=== PATIENT | male | born 1930 | race Caucasian/White ===

== ENCOUNTER 2016-10-21 14:57 | Inpatient (IN) | payer OTHER ==
[2016-10-21 17:20] LABS: BASOPHIL 0.3 % (0-2.0); EOSINOPHIL 1.1 % (0-4.5); MCH 29.8 pg (25.7-33.7); MCHC 33.6 g/dl (32.0-35.9); MEAN CELL VOLUME 88.5 fl (80-96); MEAN PLT VOLUME 7.1 fl (7.5-11.1); NEUTROPHILS 72.7 % (42.8-82.8); PLATELET COUNT 246 K/MM3 (134-434); RDW 19.1 % (11.9-15.9); WHITE BLOOD COUNT 6.9 K/mm3 (4.0-10.0)
[2016-10-21 18:09] LABS: ALBUMIN 2.6 g/dl (3.4-5.0); ANION GAP 7 (8-16); CALCIUM 7.6 mg/dL (8.5-10.1); CO2 28 mmol/L (21-32); CREATININE 0.7 mg/dL (0.7-1.3); GLUCOSE,RANDOM 94 mg/dL (74-106); SGOT/AST 14 U/L (15-37); SGPT/ALT 30 U/L (12-78)
[2016-10-21 18:14] LABS: ALK PHOS 93 U/L (45-117); BILIRUBIN,TOTAL 0.3 mg/dL (0.2-1.0); TOT PROT 5.1 g/dl (6.4-8.2); TROPONIN I < 0.02 ng/ml (0.00-0.05)
--- NOTE | 2016-10-21 18:42 | PDOC ---
History of Present Illness - General History Source: Patient Exam Limitations: No Limitations - History of Present Illness Initial Comments: 10/21/16 18:49 The patient is a 85 year old male, sent from [facility], with a significant past medical history of MS and COPD, who presents to the emergency department for further evaluation of CHF exacerbation. After a visit to his PCP , Dr. Reno, the patient reports she suggested he report to the ED for evaluation of his leg swelling in his bilateral extremities. The patient denies any pain or paresthesias in his lower extremities. He reports his shortness of breath is part of his baseline. The patient denies any associated chest pain, diaphoresis, or palpitations. The patient denies any fever, chills, cough, headache or dizziness. The patient denies any nausea vomiting, diarrhea, constipation, or changes in urination patterns. Allergies: None reported. Past Surgical History: None reported. Social History: Non-smoker. Denies alcohol or drug use. PCP: Dr. Lizett Reno ([phone]) <Malina Major - Last Filed: 10/21/16 22:08> <Chantale Roberts - Last Filed: 10/22/16 01:55> - General Chief Complaint: Shortness of Breath Stated Complaint: CHF Time Seen by Provider: 10/21/16 16:42 Past History <Malina Major - Last Filed: 10/21/16 22:08> - Past Medical History Cardiac Disorders: Yes (aortic stenosis) COPD: Yes Other medical history: ms, - Psycho/Social/Smoking Cessation Hx Anxiety: No Suicidal Ideation: No Smoking History: Unknown if ever smoked Have you smoked in the past 12 months: No Information on smoking cessation initiated: No Hx Alcohol Use: No Drug/Substance Use Hx: No Substance Use Type: None <Chantale oRberts - Last Filed: 10/22/16 01:55> - Past Medical History Allergies/Adverse Reactions: Allergies Allergy/AdvReac Type Severity Reaction Status Date / Time No Known Allergies Allergy Verified 10/21/16 15:50 Home Medications: Ambulatory Orders Acetaminophen [Mapap] 1,000 mg PO Q6H PRN 10/21/16 Albuterol 2.5/Ipratropium 0.5 [Duoneb -] 1 neb IH Q6H PRN 10/21/16 Albuterol Sulfate [Proair Respiclick] 90 mcg IH QID PRN 10/21/16 Aspirin [ASA -] 81 mg PO DAILY 10/21/16 Atorvastatin Ca [Lipitor] 40 mg PO HS 10/21/16 Budesonide/Formeterol Fumarate [SYMBICORT 160/4.5mcg -] 1 inh PO BID 10/21/16 Cholecalciferol (Vitamin D3) [Vitamin D3] 400 unit PO DAILY 10/21/16 Clopidogrel Bisulfate [Plavix -] 75 mg PO DAILY 10/21/16 Diltiazem HCl [Diltiazem 24Hr Cd] 240 mg PO DAILY 10/21/16 Docusate Sodium 100 mg PO TID 10/21/16 Ferrous Sulfate 325 mg PO DAILY 10/21/16 Guaifenesin [Mucinex] 600 mg PO Q12H 10/21/16 Ibuprofen [Motrin -] 400 mg PO Q8H PRN 10/21/16 Isosorbide Mononitrate [Imdur -] 30 mg PO DAILY 10/21/16 Levothyroxine [Synthroid -] 150 mcg PO DAILY 10/21/16 Magnesium Hydrox 2400MG/30Ml [Milk of Magnesia -] 30 ml PO Q6H PRN 10/21/16 Omeprazole 40 mg PO DAILY 10/21/16 Ropinirole HCl 3 mg PO DAILY 10/21/16 Tiotropium [place] [Spiriva] 1 inh PO DAILY 10/21/16 Venlafaxine HCl ER [Effexor Xr -] 75 mg PO TID 10/21/16 Review of Systems - Review of Systems Able to Perform ROS?: Yes Comments:: 10/21/16 18:49 CONSTITUTIONAL: Absent: fever, no chills, no fatigue EYES: Absent: visual changes ENT: Absent: ear pain, no sore throat CARDIOVASCULAR: Absent: chest pain, no palpitations RESPIRATORY: Present: +shortness of breath Absent: cough GI: Absent: abdominal pain, no nausea, no vomiting, no constipation, no diarrhea GENITOURINARY: Absent: dysuria, no frequency, no hematuria MUSKULOSKELETAL: Present: +Swelling in lower extremities bilaterally Absent: back pain, no arthralgia, no myalgia SKIN: Absent: rash NEURO: Absent: headache <Major,Giomilsy - Last Filed: 10/21/16 22:08> *Physical Exam - Vital Signs Last Vital Signs Temp Pulse Resp BP Pulse Ox 97.1 F L 76 18 102/48 96 10/21/16 14:57 10/21/16 17:22 10/21/16 14:57 10/21/16 14:57 10/21/16 17:22 - Physical Exam Comments: 10/21/16 18:49 GENERAL: Well-appearing, well-nourished. +Labile affect. HEENT: Normocephalic, atraumatic. PERRL, EOM intact. CARDIOVASCULAR: Normal S1, S2. Regular rate and rhythm. PULMONARY: Clear to auscultation bilaterally. No rales or ronchi. ABDOMEN: +Tenderness to palpation in the right and left lower quadrants, with no guarding or rebound. EXTREMITIES: 2+ bilateral pitting edema up to the knee. Normal ROM in all four extremities. SKIN: Warm, dry. No rash NEUROLOGICAL: No focal neurological deficits. <PedritoRomyfermin - Last Filed: 10/21/16 22:08> - Vital Signs Last Vital Signs Temp Pulse Resp BP Pulse Ox 97.1 F L 76 18 102/48 96 10/21/16 14:57 10/21/16 17:22 10/21/16 14:57 10/21/16 14:57 10/21/16 17:22 <Chantale Roberts - Last Filed: 10/22/16 01:55> Heart Score/ECG Review - ECG Impressions Comment:: 10/21/16 18:51 Vent. Rate: 76 bpm EXAM: Sinus rhythm with premature atrial complexes. <PedritoRomyfermin - Last Filed: 10/21/16 22:08> ED Treatment Course - LABORATORY CBC & Chemistry Diagram: 10/21/16 16:56 10/21/16 16:56 - ADDITIONAL ORDERS Additional order review: Laboratory Results 10/21/16 16:56 Sodium 145 Potassium 3.7 Chloride 110 H Carbon Dioxide 28 Anion Gap 7 L BUN 16 Creatinine 0.7 Creat Clearance w eGFR > 60 Random Glucose 94 Calcium 7.6 L Total Bilirubin 0.3 AST 14 L ALT 30 Alkaline Phosphatase 93 Creatine Kinase 27 L Troponin I < 0.02 B-Natriuretic Peptide 171.96 Total Protein 5.1 L Albumin 2.6 L 10/21/16 16:56 RBC 3.81 L MCV 88.5 MCHC 33.6 RDW 19.1 H MPV 7.1 L Neutrophils % 72.7 Lymphocytes % 16.5 Monocytes % 9.4 Eosinophils % 1.1 Basophils % 0.3 - RADIOLOGY Radiograph Interpretation: 10/21/16 18:53 EXAM: CXR INTERPRETED BY: Dr. Kim REVIEWED BY: Dr. Roberts IMPRESSION: Old skeletal trauma. Large heart. Coarse lung changes. Infiltrate or atelectasis with fluid left base. <Malina Major - Last Filed: 10/21/16 22:08> - LABORATORY CBC & Chemistry Diagram: 10/21/16 16:56 10/21/16 16:56 - ADDITIONAL ORDERS Additional order review: Laboratory Results 10/21/16 16:56 Sodium 145 Potassium 3.7 Chloride 110 H Carbon Dioxide 28 Anion Gap 7 L BUN 16 Creatinine 0.7 Creat Clearance w eGFR > 60 Random Glucose 94 Calcium 7.6 L Total Bilirubin 0.3 AST 14 L ALT 30 Alkaline Phosphatase 93 Creatine Kinase 27 L Troponin I < 0.02 B-Natriuretic Peptide 171.96 Total Protein 5.1 L Albumin 2.6 L 10/21/16 16:56 RBC 3.81 L MCV 88.5 MCHC 33.6 RDW 19.1 H MPV 7.1 L Neutrophils % 72.7 Lymphocytes % 16.5 Monocytes % 9.4 Eosinophils % 1.1 Basophils % 0.3 <Chantale Roberts - Last Filed: 10/22/16 01:55> Progress Note - Progress Note Progress Note: First call placed to Dr. Reno at 18:45. Case discussed with Dr. Reno at 18:50. Second call placed to Dr. Reno at 21:18. Awaiting call back. Case discussed with Dr. Reno at 22:08. <Malina Major - Last Filed: 10/21/16 22:08> Medical Decision Making - Medical Decision Making 10/21/16 20:06 85-year-old male sent in by Dr. Dyllan ruth for dyspnea at rest and lower extremity edema. Patient has a past medical history of COPD and multiple sclerosis and that PCP is concerned that he might have "congestive heart failure" -patient denies any complaints and states he feels fine. He said he was sent here just because of his lower extremity edema I spoke w Dr Mijares I reviewed the labs. There was no elevation in the patient's BNP and nondistended his initial lung exam, he had diminished breath sounds. Plan is for the patient to receive prednisone, bronchodilator treatments and Lasix Dr. Mjiares expects to see the patient in the emergency department this evening 10/21/16 22:21 Patient states he feels better after his respiratory treatments and on exam he is moving he has increased breath sounds, greater air movement but no wheezing, crackles, or rails appreciated Currently, Dr. Mijares is at his bedside 10/22/16 01:54 pt required lasix for his LE edema .Admitted for further evaluation /breathing tx <Chantale Roberts - Last Filed: 10/22/16 01:55> *DC/Admit/Observation/Transfer - Attestations Scribe Attestion: 10/21/16 18:50 Documentation prepared by Malina Major, acting as medical transcriber for Chantale Roberts MD. <Malina Major - Last Filed: 10/21/16 22:08> - Discharge Dispostion Admit: Yes <Chantale Roberts - Last Filed: 10/22/16 01:55> Diagnosis at time of Disposition: Edema extremities COPD (chronic obstructive pulmonary disease) Qualifiers: COPD type: COPD with acute exacerbation Qualified Code(s): J44.1 - Chronic obstructive pulmonary disease with (acute) exacerbation - Referrals
[2016-10-21] MEDS ORDERED: predniSONE 20 MG TABLET (UD) PO ONE (18:52)
[2016-10-21] MEDS ORDERED: ALBUTEROL SO4 2.5/IPRATROPIUM 0.5 INH SOL 3 ML VIAL.NEB. NEB ONE ×3 (18:52→19:28)
[2016-10-21] MEDS ORDERED: FUROSEMIDE 40 MG/4 ML INJECTABLE VIAL IVPUSH ONE (18:53)
[2016-10-21] MEDS ORDERED: FUROSEMIDE 40 MG/4 ML INJECTABLE VIAL ONE (19:11)
[2016-10-21] MEDS ORDERED: predniSONE 20 MG TABLET (UD) ONE (19:11)
--- NOTE | 2016-10-22 00:48 | PN ---
Progress Note (short form) - Note Progress Note: The patient is a 85 year old male, with PMH of COPD / Hypothyroid / CAD / MS / HTN / long hx of non compliance, seen at [facility] earlier in the day, with a significant change in respiratory status along with increased edema of LE . Patient was sitting in bed - unable to speak in full sentences. - - He states this has been getting worse over last "day or 2" he denies CP / diaphoresis. he had decreased BS with expiratory wheezing / ?some crackles / no rales. On exam also note significant LE edema. The patient denies any fever , chills, cough, headache or dizziness. The patient denies any nausea vomiting, diarrhea, constipation, or changes in urination patterns. He was referred to ER for further evaluation --COPD +/- CHF, fluid overload?
--- NOTE | 2016-10-22 00:54 | HP ---
Admitting History and Physical - Admission Chief Complaint: dyspnea / Lower extremeties edema History of Present Illness: The patient is a 85 year old male, with PMH of COPD / Hypothyroid / CAD / MS / HTN / long hx of non compliance, seen at [facility] earlier in the day, with a significant change in respiratory status along with increased edema of LE . Patient was sitting in bed - unable to speak in full sentences. - - He states this has been getting worse over last "day or 2" he denies CP / diaphoresis. he had decreased BS with expiratory wheezing / ?some crackles / no rales. On exam also note significant LE edema. The patient denies any fever , chills, cough, headache or dizziness. The patient denies any nausea vomiting, diarrhea, constipation, or changes in urination patterns. He was referred to ER for further evaluation --COPD +/- CHF, fluid overload? History Source: Patient, Medical Record Limitations to Obtaining History: No Limitations - Past Medical History [employer]ATOR: Yes: Multiple Sclerosis, Seizure Cardiovascular: Yes: Aortic Stenosis, CAD, CHF, HTN, Hyperlipdemia Pulmonary: Yes: COPD Gastrointestinal: Yes: Constipation Psych: Yes: Depression - Smoking History Smoking history: Unknown if ever smoked Have you smoked in the past 12 months: No - Alcohol/Substance Use Hx Alcohol Use: No - Social History Usual Living Arrangement: Yes: Assisted Living ADL: Support Services History of Recent Travel: No Home Medications - Allergies Allergies/Adverse Reactions: Allergies Allergy/AdvReac Type Severity Reaction Status Date / Time No Known Allergies Allergy Verified 10/21/16 15:50 - Home Medications Home Medications: Ambulatory Orders Acetaminophen [Mapap] 1,000 mg PO Q6H PRN 10/21/16 Albuterol 2.5/Ipratropium 0.5 [Duoneb -] 1 neb IH Q6H PRN 10/21/16 Albuterol Sulfate [Proair Respiclick] 90 mcg IH QID PRN 10/21/16 Aspirin [ASA -] 81 mg PO DAILY 10/21/16 Atorvastatin Ca [Lipitor] 40 mg PO HS 10/21/16 Budesonide/Formeterol Fumarate [SYMBICORT 160/4.5mcg -] 1 inh PO BID 10/21/16 Cholecalciferol (Vitamin D3) [Vitamin D3] 400 unit PO DAILY 10/21/16 Clopidogrel Bisulfate [Plavix -] 75 mg PO DAILY 10/21/16 Diltiazem HCl [Diltiazem 24Hr Cd] 240 mg PO DAILY 10/21/16 Docusate Sodium 100 mg PO TID 10/21/16 Ferrous Sulfate 325 mg PO DAILY 10/21/16 Guaifenesin [Mucinex] 600 mg PO Q12H 10/21/16 Ibuprofen [Motrin -] 400 mg PO Q8H PRN 10/21/16 Isosorbide Mononitrate [Imdur -] 30 mg PO DAILY 10/21/16 Levothyroxine [Synthroid -] 150 mcg PO DAILY 10/21/16 Magnesium Hydrox 2400MG/30Ml [Milk of Magnesia -] 30 ml PO Q6H PRN 10/21/16 Omeprazole 40 mg PO DAILY 10/21/16 Ropinirole HCl 3 mg PO DAILY 10/21/16 Tiotropium [place] [Spiriva] 1 inh PO DAILY 10/21/16 Venlafaxine HCl ER [Effexor Xr -] 75 mg PO TID 10/21/16 Review of Systems - Review of Systems Constitutional: reports: No Symptoms Eyes: reports: No Symptoms HENT: reports: No Symptoms Neck: reports: No Symptoms Cardiovascular: reports: Shortness of Breath Respiratory: reports: Orthopnea, PND, SOB Breasts: reports: No Symptoms Reported Musculoskeletal: reports: No Symptoms Integumentary: reports: No Symptoms Neurological: reports: Pre-Existing Deficit Endocrine: reports: No Symptoms Hematology/Lymphatic: reports: No Symptoms Physical Examination Vital Signs: Vital Signs Temperature 97.6 F 10/21/16 23:50 Pulse Rate 77 10/21/16 23:50 Respiratory Rate 20 10/21/16 23:50 Blood Pressure 120/63 10/21/16 23:50 O2 Sat by Pulse Oximetry (%) 96 10/21/16 17:22 Constitutional: Yes: Well Nourished, Calm, Mild Distress Eyes: Yes: WNL HENT: Yes: WNL Neck: Yes: WNL, Supple, Trachea Midline, Decreased ROM Cardiovascular: Yes: Regular Rate and Rhythm Respiratory: Yes: Diminished, On Venti-Mask Gastrointestinal: Yes: WNL, Normal Bowel Sounds, Soft Renal/: Yes: WNL, Incontinence Musculoskeletal: Yes: WNL Extremities: Yes: Cool, Other Edema: Yes Peripheral Pulses WNL: Yes Neurological: Yes: WNL ...Motor Strength: LLE Problem List - Problems (1) COPD (chronic obstructive pulmonary disease) Code(s): J44.9 - CHRONIC OBSTRUCTIVE PULMONARY DISEASE, UNSPECIFIED Qualifiers : COPD type: COPD with acute exacerbation Qualified Code(s): J44.1 - Chronic obstructive pulmonary disease with (acute) exacerbation (2) Edema extremities Code(s): R60.0 - LOCALIZED EDEMA (3) Hypothyroid Code(s): E03.9 - HYPOTHYROIDISM, UNSPECIFIED (4) CAD (coronary artery disease) Code(s): I25.10 - ATHSCL HEART DISEASE OF [place] CORONARY ARTERY W/O ANG PCTRS (5) CAD (coronary artery disease), autologous vein bypass graft Code(s): I25.810 - ATHEROSCLEROSIS OF CABG W/O ANGINA PECTORIS
[2016-10-22] MEDS: methylPREDNISolone NA SUCC 40 MG/1 ML VIAL IVPB SCH ×3 (02:03→18:02)
[2016-10-22 04:20] VITALS: BMI 25.4
[2016-10-22] MEDS ORDERED: VENLAFAXINE HCL 75 MG TABLET PO SCH (06:00)
[2016-10-22] MEDS: ALBUTEROL SO4 2.5/IPRATROPIUM 0.5 INH SOL 3 ML VIAL.NEB. NEB SCH ×4 (06:10→23:26)
[2016-10-22] MEDS: LEVOTHYROXINE NA 150 MCG TABLET PO SCH (06:22)
[2016-10-22 07:31] LABS: BASOPHIL 0.2 % (0-2.0); MCH 29.9 pg (25.7-33.7); MCHC 34.1 g/dl (32.0-35.9); MEAN CELL VOLUME 87.8 fl (80-96); MEAN PLT VOLUME 7.3 fl (7.5-11.1); NEUTROPHILS 82.4 % (42.8-82.8); PLATELET COUNT 231 K/MM3 (134-434); RDW 18.8 % (11.9-15.9)
[2016-10-22] MEDS ORDERED: PT OWN MED DRAWER 7, Y5N ONE ×5 (08:37→21:17)
[2016-10-22 09:00] LABS: CALCIUM 7.9 mg/dL (8.5-10.1); CREATININE 0.8 mg/dL (0.7-1.3); THYROID STIMULATING HORMONE 0.59 uIU/ml (0.358-3.74)
[2016-10-22] MEDS: VENLAFAXINE HCL 75 MG TABLET PO SCH ×3 (09:37→18:02)
[2016-10-22] MEDS: ISOSORBIDE MONONITRATE 30 MG TAB.SR.24H (FP) PO SCH (10:53)
[2016-10-22] MEDS: ASPIRIN COATED 81 MG TABLET.EC PO SCH (10:53)
[2016-10-22] MEDS: HEPARIN NA (PORCINE) 5,000 UNITS/ML 1ML VIAL SQ SCH ×2 (10:53→21:48)
[2016-10-22] MEDS: FUROSEMIDE 40 MG/4 ML INJECTABLE VIAL IVPB SCH (10:54)
[2016-10-22] MEDS: PANTOPRAZOLE 40 MG TABLET (FP) PO SCH (10:54)
[2016-10-22] MEDS: BUDESONIDE/FORMETEROL FUMARATE 160/4.5 mcg INHALER IH SCH ×2 (12:40→21:48)
[2016-10-22] MEDS: ATORVASTATIN CA 40 MG TABLET (FP) PO SCH (21:48)
[2016-10-22] MEDS: rOPINIRole HCL 3 MG TABLET PO SCH (21:49)
--- NOTE | 2016-10-22 23:30 | PN ---
Progress Note (short form) - Note Progress Note: in bed awaiting breakfast more comfortable / less dyspneic Vital Signs Period Temp Pulse Resp BP Sys/Pearson Pulse Ox Last 24 Hr 97.6 F-97.8 F 77-94 18-20 104-141/50-79 95-95 neck -jvd heart irreg S1/S2 lungs improved BS bilat no wheezing abd soft non tender ext +2 edema bilat (less)? CBC, BMP 10/22/16 06:00 10/22/16 06:00 Active Medications Albuterol/Ipratropium (Duoneb -) 1 amp NEB QIDR [facility] Last Admin: 10/22/16 17:55 Dose: 1 amp Aspirin (Ecotrin -) 81 mg PO DAILY [facility] Last Admin: 10/22/16 10:53 Dose: 81 mg Atorvastatin Calcium (Lipitor -) 40 mg PO HS [facility] Last Admin: 10/22/16 21:48 Dose: 40 mg Budesonide/Formoterol Fumarate (Symbicort 160/4.5mcg -) 1 puff IH BID [facility] Last Admin: 10/22/16 21:48 Dose: 1 puff Diltiazem HCl (Cardizem Cd -) 240 mg PO DAILY [facility] Last Admin: 10/22/16 10:53 Dose: 240 mg Furosemide (Lasix Injection -) 20 mg IVPB DAILY [facility] Last Admin: 10/22/16 10:54 Dose: 20 mg Heparin Sodium (Porcine) (Heparin -) 5,000 unit SQ BID [facility] Last Admin: 10/22/16 21:48 Dose: 5,000 unit Isosorbide Mononitrate (Imdur -) 30 mg PO DAILY [facility] Last Admin: 10/22/16 10:53 Dose: 30 mg Levothyroxine Sodium (Synthroid -) 150 mcg PO DAILY@0700 [facility] Last Admin: 10/22/16 06:22 Dose: 150 mcg Methylprednisolone Sodium Succinate (Solu-Medrol -) 40 mg IVPB Q8H-IV [facility] Last Admin: 10/22/16 18:02 Dose: 40 mg Pantoprazole Sodium (Protonix -) 40 mg PO DAILY [facility] Last Admin: 10/22/16 10:54 Dose: 40 mg Ropinirole HCl (Requip -) 3 mg PO HS [facility] Last Admin: 10/22/16 21:49 Dose: 3 mg Venlafaxine HCl (Effexor -) 75 mg PO TIDCM [place] Last Admin: 10/22/16 18:02 Dose: 75 mg Laboratory Last Values WBC 6.0 K/mm3 (4.0-10.0) 10/22/16 06:00 RBC 4.02 M/mm3 (4.00-5.60) 10/22/16 06:00 Hgb 12.0 GM/dL (11.7-16.9) 10/22/16 06:00 Hct 35.3 % (35.4-49) L 10/22/16 06:00 MCV 87.8 fl (80-96) 10/22/16 06:00 MCHC 34.1 g/dl (32.0-35.9) 10/22/16 06:00 RDW 18.8 % (11.9-15.9) H 10/22/16 06:00 Plt Count 231 K/MM3 (134-434) 10/22/16 06:00 MPV 7.3 fl (7.5-11.1) L 10/22/16 06:00 Neutrophils % 82.4 % (42.8-82.8) 10/22/16 06:00 Lymphocytes % 16.2 % (8-40) 10/22/16 06:00 Monocytes % 1.2 % (3.8-10.2) L D 10/22/16 06:00 Eosinophils % 0.0 % (0-4.5) D 10/22/16 06:00 Basophils % 0.2 % (0-2.0) 10/22/16 06:00 Sodium 144 mmol/L (136-145) 10/22/16 06:00 Potassium 4.0 mmol/L (3.5-5.1) 10/22/16 06:00 Chloride 107 mmol/L (98-107) 10/22/16 06:00 Carbon Dioxide 25 mmol/L (21-32) 10/22/16 06:00 Anion Gap 12 (8-16) 10/22/16 06:00 BUN 17 mg/dL (7-18) 10/22/16 06:00 Creatinine 0.8 mg/dL (0.7-1.3) 10/22/16 06:00 Creat Clearance w eGFR > 60 (>60) 10/21/16 16:56 Random Glucose 112 mg/dL (74-106) H 10/22/16 06:00 Calcium 7.9 mg/dL (8.5-10.1) L 10/22/16 06:00 Magnesium 2.0 mg/dL (1.8-2.4) 10/22/16 06:00 Total Bilirubin 0.3 mg/dL (0.2-1.0) 10/21/16 16:56 AST 14 U/L (15-37) L 10/21/16 16:56 ALT 30 U/L (12-78) 10/21/16 16:56 Alkaline Phosphatase 93 U/L (45-117) 10/21/16 16:56 Creatine Kinase 27 IU/L (39-308) L 10/21/16 16:56 Troponin I < 0.02 ng/ml (0.00-0.05) 10/21/16 16:56 B-Natriuretic Peptide 171.96 pg/ml (5-450) 10/21/16 16:56 Total Protein 5.1 g/dl (6.4-8.2) L 10/21/16 16:56 Albumin 2.6 g/dl (3.4-5.0) L 10/21/16 16:56 TSH 0.59 uIU/ml (0.358-3.74) 10/22/16 06:00 85 y/o male with hx of PA.fib / CAD / COPD / hypothyroid/ DVT s/p IVC filter / MS / was [facility] in the month and signed out AMA. I follow him at his home [facility] and was asked to see him due to having increasing LE edma along with increased Dyspnea at rest. Patient was examoned and transfered to ER for treatment. Curretly being treated with steroids / IV Lasix / Nebulizer treatment. Today with improved BS and inc comfort. Plan --taper steroids --contiue neb treatment --continue current home meds --follow labs in am Problem List - Problems (1) COPD (chronic obstructive pulmonary disease) Code(s): J44.9 - CHRONIC OBSTRUCTIVE PULMONARY DISEASE, UNSPECIFIED Qualifiers : COPD type: COPD with acute exacerbation Qualified Code(s): J44.1 - Chronic obstructive pulmonary disease with (acute) exacerbation (2) Edema extremities Code(s): R60.0 - LOCALIZED EDEMA (3) Hypothyroid Code(s): E03.9 - HYPOTHYROIDISM, UNSPECIFIED (4) CAD (coronary artery disease) Code(s): I25.10 - ATHSCL HEART DISEASE OF [place] CORONARY ARTERY W/O ANG PCTRS (5) CAD (coronary artery disease), autologous vein bypass graft Code(s): I25.810 - ATHEROSCLEROSIS OF CABG W/O ANGINA PECTORIS
--- NOTE | 2016-10-23 00:33 | EKG ---
Test Reason : Blood Pressure : / mmHG Vent. Rate : 076 BPM Atrial Rate : 076 BPM P-R Int : 160 ms QRS Dur : 108 ms QT Int : 388 ms P-R-T Axes : 015 015 025 degrees QTc Int : 436 ms SINUS RHYTHM WITH PREMATURE ATRIAL COMPLEXES OTHERWISE NORMAL ECG WHEN COMPARED WITH ECG OF 21-OCT-2016 15:24, NO SIGNIFICANT CHANGE WAS FOUND Confirmed by LOCO ALEXANDER MD ([id number]) on 10/23/2016 12:33:08 AM Referred By: Confirmed By:LOCO ALEXANDER MD
[2016-10-23] MEDS: methylPREDNISolone NA SUCC 40 MG/1 ML VIAL IVPB SCH ×3 (02:49→17:03)
[2016-10-23] MEDS: LEVOTHYROXINE NA 150 MCG TABLET PO SCH (06:09)
[2016-10-23 08:02] LABS: BASOPHIL 0.1 % (0-2.0); EOSINOPHIL 0.1 % (0-4.5); MCH 29.9 pg (25.7-33.7); MCHC 33.7 g/dl (32.0-35.9); MEAN CELL VOLUME 88.6 fl (80-96); MEAN PLT VOLUME 7.4 fl (7.5-11.1); PLATELET COUNT 234 K/MM3 (134-434); RDW 19.1 % (11.9-15.9); WHITE BLOOD COUNT 12.6 K/mm3 (4.0-10.0)
[2016-10-23 08:37] LABS: CALCIUM 8.2 mg/dL (8.5-10.1); CREATININE 0.9 mg/dL (0.7-1.3); PHOSPHOROUS 3.3 mg/dL (2.5-4.9)
[2016-10-23] MEDS ORDERED: PT OWN MED DRAWER 7, Y5N ONE (09:19)
[2016-10-23] MEDS: VENLAFAXINE HCL 75 MG TABLET PO SCH ×3 (09:21→16:50)
[2016-10-23] MEDS: PANTOPRAZOLE 40 MG TABLET (FP) PO SCH (09:21)
[2016-10-23] MEDS: ISOSORBIDE MONONITRATE 30 MG TAB.SR.24H (FP) PO SCH (09:22)
[2016-10-23] MEDS: ASPIRIN COATED 81 MG TABLET.EC PO SCH (09:22)
[2016-10-23] MEDS: FUROSEMIDE 40 MG/4 ML INJECTABLE VIAL IVPB SCH (09:22)
[2016-10-23] MEDS: HEPARIN NA (PORCINE) 5,000 UNITS/ML 1ML VIAL SQ SCH ×2 (09:22→21:36)
[2016-10-23] MEDS: BUDESONIDE/FORMETEROL FUMARATE 160/4.5 mcg INHALER IH SCH ×2 (09:23→21:37)
[2016-10-23] MEDS: ALBUTEROL SO4 2.5/IPRATROPIUM 0.5 INH SOL 3 ML VIAL.NEB. NEB SCH ×3 (11:15→23:26)
--- NOTE | 2016-10-23 14:23 | EKG ---
Test Reason : Blood Pressure : / mmHG Vent. Rate : 079 BPM Atrial Rate : 079 BPM P-R Int : 166 ms QRS Dur : 098 ms QT Int : 386 ms P-R-T Axes : 075 038 047 degrees QTc Int : 442 ms POOR DATA QUALITY, INTERPRETATION MAY BE ADVERSELY AFFECTED SINUS RHYTHM WITH PREMATURE SUPRAVENTRICULAR COMPLEXES OTHERWISE NORMAL ECG NO PREVIOUS ECGS AVAILABLE Confirmed by LOCO ALEXANDER MD ([id number]) on 10/23/2016 2:22:55 PM Referred By: Confirmed By:LOCO ALEXANDER MD
[2016-10-23] MEDS: ATORVASTATIN CA 40 MG TABLET (FP) PO SCH (21:35)
[2016-10-23] MEDS: rOPINIRole HCL 3 MG TABLET PO SCH (21:36)
[2016-10-24] MEDS: methylPREDNISolone NA SUCC 40 MG/1 ML VIAL IVPB SCH ×2 (01:26→10:32)
[2016-10-24] MEDS: ALBUTEROL SO4 2.5/IPRATROPIUM 0.5 INH SOL 3 ML VIAL.NEB. NEB SCH ×2 (06:05→11:18)
[2016-10-24] MEDS: LEVOTHYROXINE NA 150 MCG TABLET PO SCH (06:08)
[2016-10-24] MEDS ORDERED: PT OWN MED DRAWER 7, Y5N ONE ×3 (07:49→11:57)
[2016-10-24] MEDS: VENLAFAXINE HCL 75 MG TABLET PO SCH ×2 (07:50→11:58)
--- NOTE | 2016-10-24 09:46 | PN ---
Progress Note (short form) - Note Progress Note: having breakfast comfortable - wants to go home less dyspneic Vital Signs Period Temp Pulse Resp BP Sys/Pearson Pulse Ox Last 24 Hr 97.3 F-97.8 F 71-91 18-20 105-133/45-74 97-98 CBC, BMP 10/23/16 07:25 10/23/16 07:25 neck supple no JVD heart irregular S1/S2 lungs clear bilat abd soft non tender ext less edema Active Medications Albuterol/Ipratropium (Duoneb -) 1 amp NEB QIDR [facility] Last Admin: 10/24/16 06:05 Dose: 1 amp Aspirin (Ecotrin -) 81 mg PO DAILY [facility] Last Admin: 10/23/16 09:22 Dose: 81 mg Atorvastatin Calcium (Lipitor -) 40 mg PO HS [facility] Last Admin: 10/23/16 21:35 Dose: 40 mg Budesonide/Formoterol Fumarate (Symbicort 160/4.5mcg -) 1 puff IH BID [facility] Last Admin: 10/23/16 21:37 Dose: 1 puff Diltiazem HCl (Cardizem Cd -) 240 mg PO DAILY [facility] Last Admin: 10/23/16 09:22 Dose: 240 mg Furosemide (Lasix Injection -) 20 mg IVPB DAILY [facility] Last Admin: 10/23/16 09:22 Dose: 20 mg Heparin Sodium (Porcine) (Heparin -) 5,000 unit SQ BID [facility] Last Admin: 10/23/16 21:36 Dose: 5,000 unit Isosorbide Mononitrate (Imdur -) 30 mg PO DAILY [facility] Last Admin: 10/23/16 09:22 Dose: 30 mg Levothyroxine Sodium (Synthroid -) 150 mcg PO DAILY@0700 [facility] Last Admin: 10/24/16 06:08 Dose: 150 mcg Methylprednisolone Sodium Succinate (Solu-Medrol -) 40 mg IVPB Q8H-IV [facility] Last Admin: 10/24/16 01:26 Dose: 40 mg Pantoprazole Sodium (Protonix -) 40 mg PO DAILY [facility] Last Admin: 10/23/16 09:21 Dose: 40 mg Ropinirole HCl (Requip -) 3 mg PO HS [facility] Last Admin: 10/23/16 21:36 Dose: 3 mg Venlafaxine HCl (Effexor -) 75 mg PO TIDCM [facility] Last Admin: 10/24/16 07:50 Dose: 75 mg Problem List - Problems (1) COPD (chronic obstructive pulmonary disease) Assessment/Plan: improvement taper steroids cont nebulizer PPI Code(s): J44.9 - CHRONIC OBSTRUCTIVE PULMONARY DISEASE, UNSPECIFIED Qualifiers : COPD type: COPD with acute exacerbation Qualified Code(s): J44.1 - Chronic obstructive pulmonary disease with (acute) exacerbation (2) Edema extremities Assessment/Plan: less edema muscle wasting @ MS non ambulatory Code(s): R60.0 - LOCALIZED EDEMA (3) Hypothyroid Assessment/Plan: continue current dose of synthroid Code(s): E03.9 - HYPOTHYROIDISM, UNSPECIFIED (4) CAD (coronary artery disease) Code(s): I25.10 - ATHSCL HEART DISEASE OF [place] CORONARY ARTERY W/O ANG PCTRS (5) CAD (coronary artery disease), autologous vein bypass graft Code(s): I25.810 - ATHEROSCLEROSIS OF CABG W/O ANGINA PECTORIS
--- NOTE | 2016-10-24 09:51 | DS ---
Physical Examination Vital Signs: Vital Signs Temperature 97.6 F 10/24/16 08:00 Pulse Rate 71 10/24/16 08:00 Respiratory Rate 18 10/24/16 08:00 Blood Pressure 125/74 10/24/16 08:00 O2 Sat by Pulse Oximetry (%) 98 10/23/16 20:15 Constitutional: Yes: Well Nourished, No Distress, Calm Eyes: Yes: WNL HENT: Yes: WNL Neck: Yes: WNL Cardiovascular: Yes: WNL, Pulse Irregular Respiratory: Yes: CTA Bilaterally Gastrointestinal: Yes: Normal Bowel Sounds, Soft Breast(s): Yes: WNL Musculoskeletal: Yes: Muscle Weakness Extremities: Yes: Other (edema LE muscle wasting LE) Edema: LLE: 2+, RLE: 2+ Peripheral Pulses WNL: Yes Peripheral Pulses: Left Radial: 1+, Right Radial: 1+, Left Doralis Pedis: 1+, Right Dorsalis Pedis: 1+, Left Femoral: 1+, Right Femoral: 1+ Integumentary: Yes: WNL Neurological: Yes: Pre-Existing Deficit Psychiatric: Yes: Alert, Oriented Labs: CBC, BMP 10/23/16 07:25 10/23/16 07:25 Discharge Summary Reason For Visit: EDEMA EXTREMETIES Current Active Problems CAD (coronary artery disease) (Acute) CAD (coronary artery disease), autologous vein bypass graft (Acute) COPD (chronic obstructive pulmonary disease) (Acute) Edema extremities (Acute) Hypothyroid (Acute) - Instructions Referrals: Lizett Reno MD [Primary Care Provider] - - Home Medications Comprehensive Discharge Medication List: Ambulatory Orders Acetaminophen [Mapap] 1,000 mg PO Q6H PRN 10/21/16 Albuterol 2.5/Ipratropium 0.5 [Duoneb -] 1 neb IH Q6H PRN 10/21/16 Albuterol Sulfate [Proair Respiclick] 90 mcg IH QID PRN 10/21/16 Aspirin [ASA -] 81 mg PO DAILY 10/21/16 Atorvastatin Ca [Lipitor] 40 mg PO HS 10/21/16 Budesonide/Formeterol Fumarate [SYMBICORT 160/4.5mcg -] 1 inh PO BID 10/21/16 Cholecalciferol (Vitamin D3) [Vitamin D3] 400 unit PO DAILY 10/21/16 Clopidogrel Bisulfate [Plavix -] 75 mg PO DAILY 10/21/16 Diltiazem HCl [Diltiazem 24Hr Cd] 240 mg PO DAILY 10/21/16 Docusate Sodium 100 mg PO TID 10/21/16 Ferrous Sulfate 325 mg PO DAILY 10/21/16 Guaifenesin [Mucinex] 600 mg PO Q12H 10/21/16 Ibuprofen [Motrin -] 400 mg PO Q8H PRN 10/21/16 Isosorbide Mononitrate [Imdur -] 30 mg PO DAILY 10/21/16 Levothyroxine [Synthroid -] 150 mcg PO DAILY 10/21/16 Magnesium Hydrox 2400MG/30Ml [Milk of Magnesia -] 30 ml PO Q6H PRN 10/21/16 Omeprazole 40 mg PO DAILY 10/21/16 Ropinirole HCl 3 mg PO DAILY 10/21/16 Tiotropium Dieterich [Spiriva] 1 inh PO DAILY 10/21/16 Venlafaxine HCl ER [Effexor Xr -] 75 mg PO TID 10/21/16
[2016-10-24] MEDS: ISOSORBIDE MONONITRATE 30 MG TAB.SR.24H (FP) PO SCH (10:30)
[2016-10-24] MEDS: PANTOPRAZOLE 40 MG TABLET (FP) PO SCH (10:30)
[2016-10-24] MEDS: ASPIRIN COATED 81 MG TABLET.EC PO SCH (10:30)
[2016-10-24] MEDS: FUROSEMIDE 40 MG/4 ML INJECTABLE VIAL IVPB SCH (10:31)
[2016-10-24] MEDS: HEPARIN NA (PORCINE) 5,000 UNITS/ML 1ML VIAL SQ SCH (10:34)
[2016-10-24] MEDS: BUDESONIDE/FORMETEROL FUMARATE 160/4.5 mcg INHALER IH SCH (10:36)
[2016-10-24 15:23] VITALS: BP 104/73; PULSE 80; TEMP 97.3
== END 2016-10-24 15:55 | disposition home or self-care (01) | DRG 192 ==
LOC: JER 14:57 → UNDOADMIN 22:56 → JERBED 22:56 → J6S 10-22 00:01 → JERBED 10-22 00:04 → J6S 10-22 00:04
PROVIDERS: ADMIT Family Medicine; ATTEND Family Medicine
DX: J44.1 Chronic obstructive pulmonary disease with (acute) exacerbation (principal); G35 Multiple sclerosis; E03.9 Hypothyroidism, unspecified; I10 Essential (primary) hypertension; Z86.718 Personal history of other venous thrombosis and embolism; I48.0 Paroxysmal atrial fibrillation; I25.10 Atherosclerotic heart disease of native coronary artery without angina pectoris
CPT/HCPCS: 36415; 71010-TC; 80048; 80053; 80061; 82550; 83721; 83735; 83880; 84100; 84443; 84484; 85025; 93005; 93010; 94640; 99284-25; J1644